=== PATIENT | female | born 1960 | race Caucasian/White ===

== ENCOUNTER → 2016-12-27 | Outpatient (CLI) | payer BC ==
[~2016-12-27] MED LIST: ANAS1TAB19 PO; ASPEC81 PO; CALC1CHW2 PO; CHOL100010 PO; CYCL0.05 OP; EFF375 PO; FLAX10007 PO; MULT-506 PO; NAPR1TAB9 PO; PANT1TAB48 PO; PRAV20TA PO; TRIA1SPR4 NAE; ZNTT/150 PO
[2016-12-27 13:54] VITALS: BP 116/83; PULSE 88; TEMP 37; O2SAT 98
--- NOTE | 2016-12-27 17:27 | Radiation Oncology Follow-Up ---
Radiation Oncology Follow-Up Date of Visit Dec 27, 2016. 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 Last Edited By: Shayy Ovalle on Jul 01, 2015 15:47 History of Present Illness This active 56-year-old lady is referred to us after undergoing double lumpectomy. The patient's history is somewhat fascinating in that she was undergoing her routine mammography when a lesion was noted on mammogram. She went on to have evaluation with ultrasound-guided biopsy which did reveal invasive carcinoma. This evaluation being back in December of this year. The patient underwent an MRI of her large fibrocystic breast at her referring physician's request. The MRI was remarkable that it showed a second area distinct from the first in her breast. Unfortunately, PAC this area could not be seen with mammography or ultrasound. She went on to have a needle under MRI localization. This lesion also was positive for DCIS The patient went on to have 2 lumpectomies on her left breast on 02/24/2015. The most worrisome lesion was from 12 o'clock in the left breast, and it revealed invasive ductal carcinoma, low-grade. The tumor was ER/OH positive. HER-2/juan c negative. This lesion maximal dimension was 1.6 cm. There were excellent margins obtained. The second lesion at 6 o'clock in the left breast demonstrated low-grade DCIS only. It was found to be 1 cm from the closest margin. A sentinel node procedure was done at the same time, and it was negative. In summary, the patient had 2 separate lesions, 1 of low-grade invasive cancer, ER/OH positive; the other of DCIS. She is staged T1cN0. She was seen by medical oncology Dr. Sebastian and an Oncotype DX was ordered. This was found to be 7 she did not require chemotherapy. She completed radiation therapy 05/24/2015 received 6120 cGy Interim History She's been doing well over this past year. She has occasional mild discomfort. There are no persistent discomforts. She has noted no masses and no change of the axilla. She's had no swelling of her arm. She is up-to-date on mammography. She is on Arimidex and denies side effects. She had a mammogram 02/25/2016. This showed stable postsurgical changes in the left breast from prior lumpectomies, with no mammographic evidence of malignancy in either breast. Recommend follow-up diagnostic mammogram of the left breast in 6 months. BI-RADS Category 3. She had a repeat check 6 month mammogram 2015. This showed expected post treatment changes in the left breast with increase in the copious very faint clusters of punctate microcalcifications along both the medial and lateral margins of the lumpectomy bed in the upper outer quadrant. These most likely represent benign dystrophic calcifications, but given the increased conspicuity a short interval follow-up mammogram including spot magnification views is recommended in 6 months. The patient is also due for bilateral breast MRI to ensure stability. She did have the breast MRIs 09/04/2016. This showed expected postsurgical and posttreatment changes within the left breast, without MRI evidence of malignancy bilaterally. Bilateral diagnostic mammogram is recommended in 6 months. And this will be for the left breast. Allergies Coded Allergies: No Known Allergies (Unverified , 10/20/11) Home Medications Scheduled Anastrozole (Arimidex), 1 TAB PO DAILY Aspirin Enteric Coated (Ecotrin Or Generic *), 81 MG PO DAILY Calcium Carbonate-Vitamin D (Caltrate 600+D 600-400 mg-Unit), 1 TAB PO DAILY Cholecalciferol (Vitamin D), 1,000 INTER.UNIT PO DAILY Cyclosporine Oph 0.05% (Restasis Oph 0.05%), 1 DROP OP BID Flaxseed (Linseed) (Flax Seed Oil), 1 CAP PO DAILY Multivitamin (Multivitamin), 1 TAB PO DAILY Naproxen (Aleve), 440 MG PO BID Pravastatin (Pravachol ), 40 MG PO QAM Ranitidine (Zantac), 1 TAB PO BID Venlafaxine Hcl (Effexor *), 37.5 MG PO QPM Scheduled PRN Triamcinolone Acetonide (Nasal (Nasacort Allergy 24Hr), 2 SPRAYS ALLEN DAILY PRN for Nasal Congestion Review of Systems Gastrointestinal: Symptoms: WNL Oral: Symptoms: No Problems Respiratory: Symptoms: WNL Urinary: Symptoms: Nocturia Comments: nocturia times 1 Skin: Symptoms: No Problems Breast: Right Upper Arm Measurement: 31.0 Right Mid Arm Measurement: 24.0 Right Wrist Measurement: 16.7 Left Upper Arm Measurement: 31.0 Left Mid Arm Measurement: 25.0 Left Wrist Measurement: 16.6 Arm Dominence: Left Patient Cosmetic Evaluation: Good Staff Cosmetic Evalaluation: Good Physical Exam Vital Signs Date Time Temp Pulse Resp B/P Pulse Ox O2 Delivery O2 Flow Rate FiO2 12/27/16 13:54 37.0 88 16 116/83 98 Pain: Side: Bilateral Patient Pain Scale: 0 - 10 Initial Pain Intensity: 0.0 Fatigue: None General Appearance: no apparent distress Eyes: normal inspection, EOMI ENT: normal ENT inspection, hearing grossly normal Neck: no adenopathy, thyroid normal Respiratory/Chest: lungs clear, no respiratory distress, no accessory muscle use Breast: Large pendulous breasts. The left breast showed well healed incisions. There are no masses or tenderness no axillary adenopathy she has no skin retractions or nipple changes using the [place] score cosmesis she has a in excellent outcome. There is no telangiectasia. The right breast showed no masses or tenderness and no axillary adenopathy. Cardiovascular: regular rate, rhythm, no gallop, no murmur Abdomen: non tender Extremities: no pedal edema Neurologic/Psychiatric: no motor/sensory deficits, alert, normal mood/affect Skin: warm/dry Lymphatic: no adenopathy Additional Studies Mammography and MRIs as reviewed above. Assessment & Plan Plan: She is scheduled for next mammogram in February. Continue regular follow-up with Dr. Hackett, Dr. Sebastian, and her primary care provider. She continues on Arimidex. We asked her to return to our office in 1 year. She may call if she has any questions or concerns in the interim. Total Time In Follow-Up I spent 20 minutes speaking to the patient performing examination. I spent 15 minutes reviewing information in completing this note. Copy To Nancy Hackett MD; Marc Kennedy M.D.; Fady Sebastian M.D. Problem Qualifiers (1) Malignant neoplasm of central portion of female breast: Laterality: left Qualified Codes: C50.112 - Malignant neoplasm of central portion of left female breast
== END | disposition home or self-care (01) ==
LOC: C.ONC 13:15
PROVIDERS: ATTEND Physician Assistant Medical
DX: Z08 Encounter for follow-up examination after completed treatment for malignant neoplasm (principal); Z92.3 Personal history of irradiation; Z85.3 Personal history of malignant neoplasm of breast

== ENCOUNTER → 2017-02-26 | Outpatient (CLI) | payer BC ==
[~2017-02-26] MED LIST changes: -PANT1TAB48 PO
--- NOTE | 2017-02-27 07:57 | MAMMOGRAPHY REPORT ---
BILATERAL DIGITAL DIAGNOSTIC MAMMOGRAM TOMOSYNTHESIS WITH CAD: 02/26/2017 CLINICAL HISTORY: 56-year-old female with a personal history of left breast cancer and right breast atypia status post treatment. TECHNIQUE: Bilateral CC and MLO 2-D digital and tomosynthesis images, spot magnification left CC an d ML views were obtained. Current study was also evaluated with a Computer Aided Detection (CAD) sy stem. COMPARISON: Comparison is made to exams dated: 09/04/2016 breast MRI, 08/29/2016 mammogram, 02/25/20 16 mammogram, 08/19/2015 breast MRI, 08/19/2015 mammogram, and 01/27/2015 mammogram - [facility]. BREAST COMPOSITION: There are scattered areas of fibroglandular density in both breasts. FINDINGS: There are linear scar markers overlying each breast. There is expected architectural dis tortion with central fat necrosis in the upper outer middle to anterior left breast, at the site of prior lumpectomy. A ribbon-shaped metallic biopsy marker remains in the left upper outer anterior b reast. There are stable circumscribed masses in the central left breast. Spot magnification views demonstrate a few scattered and grouped benign-appearing round and punctate microcalcifications, lat eral, and medial to the central area of fat necrosis. These microcalcifications appear similar dati ng back to the spot magnification views performed 08/19/2015 and are most likely benign. There are other scattered and grouped microcalcifications throughout the entire right breast that appears rut lar dating back to 2010 and also likely benign. No new suspicious spiculated or irregular mass, une xpected focal area of architectural distortion or new calcifications are seen bilaterally. IMPRESSION: ACR-BI-RADS CATEGORY 3: PROBABLY BENIGN 1. Expected postsurgical/post treatment changes in the left breast, and postsurgical changes in the right breast, without definite mammographic evidence of malignancy bilaterally. Another 12 month f ollow-up bilateral diagnostic mammogram with repeat left spot magnification views is recommended to ensure longer stability. Particularly given the heterogeneously dense breasts, multiple masses and microcalcifications bilaterally, personal history of right breast atypia and left breast cancer. 2. Would also recommend continuation of breast MRI for additional surveillance, given that the righ t breast atypia was only seen on MRI. These results and recommendations were discussed with the patient at the time of the exam. Approximately 10% of breast cancers are not detected with mammography. A negative mammographic repor t should not delay biopsy if a clinically suggestive mass is present. Haylee Zelaya M.D. ay/:02/26/2017 16:13:54 Credit Assistant: Consuelo Chapin, [facility] letter sent: Follow Up Recommended 3 BI-RADS Code: ACR-BI-RADS Category 3: Probably Benign
== END | disposition home or self-care (01) ==
LOC: C.MAMM 10:41
PROVIDERS: ATTEND Surgery
DX: Z85.3 Personal history of malignant neoplasm of breast (principal); Z09 Encounter for follow-up examination after completed treatment for conditions other than malignant neoplasm

== ENCOUNTER → 2017-10-04 | Outpatient (CLI) | payer BC ==
[~2017-10-04] MED LIST changes: +GADAVIST IV PRN
--- NOTE | 2017-10-05 12:52 | MAMMOGRAPHY REPORT ---
BREAST MRI OF BOTH BREASTS : 10/04/2017 CLINICAL HISTORY: History of left breast cancer and atypia status post treatment. COMPARISON: Comparison is made to exams dated: 02/26/2017 mammogram, 09/04/2016 breast MRI, 6 mammogram, 08/19/2015 breast MRI, 08/19/2015 mammogram, and 01/27/2015 mammogram - [facility]. Technique: The patient was placed prone in a dedicated breast imaging coil. Precontrast axial T1-angelic ghted, axial T2-weighted fat saturation, and axial T1-weighted fat saturation images were obtained. After the administration of 9 mL of Gadavist IV contrast, sequential T1-weighted fat saturation image s were obtained. Subtraction images were obtained of the dynamic contrast enhanced sequences, and 3- D reformations were performed. The [employer] software was used for kinetic analysis. Findings: There is mild background parenchymal enhancement involving bilateral breasts. There are expected pos tsurgical changes including fat necrosis at the site of prior lumpectomies in the left upper outer qu adrant and 6:00 breast. There are no suspicious enhancing masses or areas of abnormal non-mass enhan cement within either breast. There has been no significant interval change compared to the prior MRI exam. Circumscribed 6 mm benign-appearing enhancing mass in the right breast at approximately 9:00 is stable dating back to at least the December 2014 exam, and is considered benign given long-term stabi lity and likely represents a fibroadenoma. Other benign-appearing circumscribed masses are seen bila terally which do not demonstrate any significant postcontrast enhancement and are considered benign a nd likely also represent fibroadenomas. There is no evidence of axillary adenopathy. The chest wall structures are negative. Visualized por tions of the extramammary soft tissues are unremarkable. IMPRESSION: ACR BI-RADS CATEGORY 2: BENIGN Expected post treatment changes in the left breast, without MRI evidence of malignancy in either [facility] [facility]. Note that the patient is due for bilateral diagnostic mammograms February 2018. Also consider contin uation of yearly breast MRI for additional surveillance. Анна Vo M.D. /:10/04/2017 17:01:19 Preform Plate Maker: complex care nurse, [facility] letter sent: Normal 1/2 BI-RADS Code: ACR BI-RADS Category 2: Benign
== END | disposition home or self-care (01) ==
LOC: C.MRI 12:29
PROVIDERS: ATTEND Surgery
DX: R92.8 Other abnormal and inconclusive findings on diagnostic imaging of breast (principal)

== ENCOUNTER → 2018-01-01 | Outpatient (CLI) | payer BC ==
[~2018-01-01] MED LIST changes: -GADAVIST IV PRN; +MELO-83; +RANI150T85 PO; -ZNTT/150 PO
[2018-01-01 12:52] VITALS: BP 105/74; PULSE 84; TEMP 36.9; O2SAT 95
--- NOTE | 2018-01-01 14:03 | Radiation Oncology Follow-Up ---
Radiation Oncology Follow-Up Date of Visit Jan 01, 2018. Reason For Visit Annual follow-up Radiation Completion Date 05/24/15 Diagnosis (1) Malignant neoplasm of central portion of female breast Status: Resolved Onset Date: 12/10/2014 Stage: l (A) Permanent Comment: Abnormal left breast mammogram Status post core needle biopsy 12/10/2014 revealing ductal carcinoma grade 2 Estrosgen receptor positive, progesterone receptor positive, HER-2/juan c negative MRI revealing second lesion MRI biopsy atypical ductal hyperplasia DCIS Needle localization lumpectomies and sentinel lymph node biopsy 02/24/2015 DCIS and Invasive Ductal carcimoma Stage [id number] Oncotype DX score of 7 Status post completion of radiation therapy 05/24/2015 received 6120 cGy On going treatment with Arimidex. Last Edited By: Shayy Ovalle on Jul 01, 2015 15:47 History of Present Illness This active 57-year-old lady is referred to us after undergoing double lumpectomy. The patient's history is somewhat fascinating in that she was undergoing her routine mammography when a lesion was noted on mammogram. She went on to have evaluation with ultrasound-guided biopsy which did reveal invasive carcinoma. This evaluation being back in December of this year. The patient underwent an MRI of her large fibrocystic breast at her referring physician's request. The MRI was remarkable that it showed a second area distinct from the first in her breast. Unfortunately, PAC this area could not be seen with mammography or ultrasound. She went on to have a needle under MRI localization. This lesion also was positive for DCIS The patient went on to have 2 lumpectomies on her left breast on 02/24/2015. The most worrisome lesion was from 12 o'clock in the left breast, and it revealed invasive ductal carcinoma, low-grade. The tumor was ER/OH positive. HER-2/juan c negative. This lesion maximal dimension was 1.6 cm. There were excellent margins obtained. The second lesion at 6 o'clock in the left breast demonstrated low-grade DCIS only. It was found to be 1 cm from the closest margin. A sentinel node procedure was done at the same time, and it was negative. In summary, the patient had 2 separate lesions, 1 of low-grade invasive cancer, ER/OH positive; the other of DCIS. She is staged T1cN0. She was seen by medical oncology Dr. Sebastian and an Oncotype DX was ordered. This was found to be 7 she did not require chemotherapy. She completed radiation therapy 05/24/2015 received 6120 cGy Interim History She has been doing well over this past year. She denies any changes in the breast. She occasionally has some discomfort if she is very active. There are no particular areas of soreness. She has noted no masses. She has had no change of the axilla no swelling of her arm. She is up-to-date on mammography. She is on Arimidex and denies side effects. Mammography and MRIs are scheduled through Dr. Hackett's office. She stated these are alternating every 6 months. Allergies Coded Allergies: No Known Allergies (Unverified , 10/20/11) Home Medications Scheduled Anastrozole (Arimidex), 1 TAB PO DAILY Aspirin Enteric Coated (Ecotrin Or Generic *), 81 MG PO DAILY Calcium Carbonate-Vitamin D (Caltrate 600+D 600-400 mg-Unit), 1 TAB PO DAILY Cholecalciferol (Vitamin D), 1,000 INTER.UNIT PO DAILY Cyclosporine Oph 0.05% (Restasis Oph 0.05%), 1 DROP OP BID Flaxseed (Linseed) (Flax Seed Oil), 1 CAP PO DAILY Meloxicam (Meloxicam), DAILY Multivitamin (Multivitamin), 1 TAB PO DAILY Pravastatin (Pravachol ), 40 MG PO QAM Ranitidine (Zantac), 1 TAB PO BID Venlafaxine Hcl (Effexor *), 37.5 MG PO QPM Scheduled PRN Triamcinolone Acetonide (Nasal (Nasacort Allergy 24Hr), 2 SPRAYS ALLEN DAILY PRN for Nasal Congestion Review of Systems Gastrointestinal: Symptoms: WNL Oral: Symptoms: No Problems Respiratory: Symptoms: WNL Urinary: Symptoms: WNL Comments: nocturia times 1 Skin: Symptoms: No Problems Breast: Right Upper Arm Measurement: 29.5 Right Mid Arm Measurement: 25.3 Right Wrist Measurement: 17.0 Left Upper Arm Measurement: 29.4 Left Mid Arm Measurement: 24.7 Left Wrist Measurement: 16.8 Arm Dominence: Left Patient Cosmetic Evaluation: Good Staff Cosmetic Evalaluation: Good Physical Exam Vital Signs Date Time Temp Pulse Resp B/P (MAP) Pulse Ox O2 Delivery O2 Flow Rate FiO2 01/01/18 12:52 36.9 84 16 105/74 95 Fatigue: None General Appearance: no apparent distress Eyes: normal inspection, EOMI ENT: normal ENT inspection, hearing grossly normal Neck: no adenopathy, thyroid normal Respiratory/Chest: lungs clear, no respiratory distress, no accessory muscle use Breast: Breast examination reveals well-healed incisions of the left breast. There are no masses or tenderness and no axillary adenopathy. There is a fibrous tissues noted in the area of the incision. She has no skin retractions or nipple changes. Using the [place] score cosmesis she has a good outcome. The right breast showed well-healed incisions. There are no masses or tenderness and no axillary adenopathy. Cardiovascular: regular rate, rhythm, no gallop, no murmur Abdomen: non tender, soft, no organomegaly Extremities: no pedal edema Neurologic/Psychiatric: no motor/sensory deficits, alert, normal mood/affect Skin: warm/dry Pain Management Patient Reports Pain: No Side: Bilateral Pain Location: None Patient Preferred Pain Scale: 0 - 10 Initial Pain Intensity: 0.0 Pain Management Plan She denied pain therefore requires no pain management. Laboratory Laboratory Results: were reviewed, and pertinent findings noted in [facility] Pathology Pathology Results: were reviewed, and pertinent findings noted in [facility] Imaging Imaging Studies: were reviewed, and pertinent findings noted below Imaging Comments Patient: ELISA BURROWS [facility] Rec: [id number] Address1: [address] [place] [address] Address2: [facility] ID: [id number] Date: 1960 Sex: F Ref Phy: Nancy Hackett MD Att Phy: Nancy Hackett MD Stacie Phy: Mansoor Beckman III, M.D. Inter Phy: Haylee Zelaya MD [facility] Zip: [place] [address] SC: C.MAMM Report #: [id number] Hospice Office Coordinator: MILADY Diagnosis: LFT BREAST CA FOLLOW UP Service Date: 02/26/17 MNE: MAMM1 Ordering Dr: Nancy Hackett MD CC: Nancy Hackett MD CONF: DICTATED BY: Haylee Zelaya MD MAMMOGRAPHY REPORT BILATERAL DIGITAL DIAGNOSTIC MAMMOGRAM TOMOSYNTHESIS WITH CAD: 02/26/2017 CLINICAL HISTORY: 56-year-old female with a personal history of left breast cancer and right breast atypia status post treatment. TECHNIQUE: Bilateral CC and MLO 2-D digital and tomosynthesis images, spot magnification left CC and ML views were obtained. Current study was also evaluated with a Computer Aided Detection (CAD) system. COMPARISON: Comparison is made to exams dated: 09/04/2016 breast MRI, 2015 mammogram, 02/25/2016 mammogram, 08/19/2015 breast MRI, 08/19/2015 mammogram , and 01/27/2015 mammogram - [facility]. BREAST COMPOSITION: There are scattered areas of fibroglandular density in both breasts. FINDINGS: There are linear scar markers overlying each breast. There is expected architectural distortion with central fat necrosis in the upper outer middle to anterior left breast, at the site of prior lumpectomy. A ribbon- shaped metallic biopsy marker remains in the left upper outer anterior breast. There are stable circumscribed masses in the central left breast. Spot magnification views demonstrate a few scattered and grouped benign-appearing round and punctate microcalcifications, lateral, and medial to the central area of fat necrosis. These microcalcifications appear similar dating back to the spot magnification views performed 08/19/2015 and are most likely benign. There are other scattered and grouped microcalcifications throughout the entire right breast that appears similar dating back to 2010 and also likely benign. No new suspicious spiculated or irregular mass, unexpected focal area of architectural distortion or new calcifications are seen bilaterally. IMPRESSION: ACR-BI-RADS CATEGORY 3: PROBABLY BENIGN 1. Expected postsurgical/post treatment changes in the left breast, and postsurgical changes in the right breast, without definite mammographic evidence of malignancy bilaterally. Another 12 month follow-up bilateral diagnostic mammogram with repeat left spot magnification views is recommended to ensure longer stability. Particularly given the heterogeneously dense breasts, multiple masses and microcalcifications bilaterally, personal history of right breast atypia and left breast cancer. 2. Would also recommend continuation of breast MRI for additional surveillance , given that the right breast atypia was only seen on MRI. These results and recommendations were discussed with the patient at the time of the exam. Approximately 10% of breast cancers are not detected with mammography. A negative mammographic report should not delay biopsy if a clinically suggestive mass is present. Haylee Zelaya M.D. ay/:02/26/2017 16:13:54 Application Counselor: Consuelo Chapin, [facility] letter sent: Follow Up Recommended 3 BI-RADS Code: ACR-BI-RADS Category 3: Probably Benign Dictated by: Haylee Zelaya MD Signed by: Haylee Zelaya MD Patient: ELISA BURROWS [facility] Rec: [id number] Address1: [address] Address2: [employer] ID: [id number] Date: 1960 Sex: F Ref Phy: Nancy Hackett MD Att Phy: Nancy Hackett MD Stacie Phy: Mansoor Beckman III, M.D. Inter Phy: Анна Vo MD [facility] Zip: [place] [address] SC: C.MRI Report #: [id number] Hospice Office Coordinator: SERJIO Diagnosis: ABNORMAL MAMM Service Date: 10/04/17 MNE: MAMM1 Ordering Dr: Nancy Hackett MD CC: Nancy Hackett MD CONF: DICTATED BY: Анна Vo MD MAMMOGRAPHY REPORT BREAST MRI OF BOTH BREASTS : 10/04/2017 CLINICAL HISTORY: History of left breast cancer and atypia status post treatment. COMPARISON: Comparison is made to exams dated: 02/26/2017 mammogram, 09/04/2016 breast MRI, 08/29/2016 mammogram, 08/19/2015 breast MRI, 08/19/2015 mammogram, and 01/27/2015 mammogram - [facility]. Technique: The patient was placed prone in a dedicated breast imaging coil. Precontrast axial T1-weighted, axial T2-weighted fat saturation, and axial T1- weighted fat saturation images were obtained. After the administration of 9 mL of Gadavist IV contrast, sequential T1-weighted fat saturation images were obtained. Subtraction images were obtained of the dynamic contrast enhanced sequences, and 3-D reformations were performed. The [employer] software was used for kinetic analysis. Findings: There is mild background parenchymal enhancement involving bilateral breasts. There are expected postsurgical changes including fat necrosis at the site of prior lumpectomies in the left upper outer quadrant and 6:00 breast. There are no suspicious enhancing masses or areas of abnormal non-mass enhancement within either breast. There has been no significant interval change compared to the prior MRI exam. Circumscribed 6 mm benign-appearing enhancing mass in the right breast at approximately 9:00 is stable dating back to at least the December 2014 exam, and is considered benign given long-term stability and likely represents a fibroadenoma. Other benign-appearing circumscribed masses are seen bilaterally which do not demonstrate any significant postcontrast enhancement and are considered benign and likely also represent fibroadenomas. There is no evidence of axillary adenopathy. The chest wall structures are negative. Visualized portions of the extramammary soft tissues are unremarkable. IMPRESSION: ACR BI-RADS CATEGORY 2: BENIGN Expected post treatment changes in the left breast, without MRI evidence of malignancy in either breast. Note that the patient is due for bilateral diagnostic mammograms February 2018. Also consider continuation of yearly breast MRI for additional surveillance. Анна Vo M.D. ah/:10/04/2017 17:01:19 Application Counselor: purchasing intern, [facility] letter sent: Normal 1/2 BI-RADS Code: ACR BI-RADS Category 2: Benign Dictated by: Анна Vo MD Signed by: Анна Vo MD Assessment & Plan Plan: Continue with scheduled mammography and MRIs. Continue regular follow-up with medical oncology. She continues on Rheumatrex. She was a patient of Dr. Sebastian and now will be following with Dr. Blank. We asked her to return to our office in 1 year. She may call if she has any questions or concerns in the interim. Total Time In Follow-Up I spent 20 minutes speaking to the patient in performing examination. I spent 15 minutes reviewing information and completing this note. Copy To Nancy Hackett MD; Bailey Blank MD; Mansoor Beckman III, M.D. Problem Qualifiers (1) Malignant neoplasm of central portion of female breast: Estrogen receptor status: positive Laterality: left Qualified Codes: C50.112 - Malignant neoplasm of central portion of left female breast; Z17.0 - Estrogen receptor positive status [ER+]
== END | disposition home or self-care (01) ==
LOC: C.ONC 12:48
PROVIDERS: ATTEND Physician Assistant Medical
DX: Z08 Encounter for follow-up examination after completed treatment for malignant neoplasm (principal); Z92.3 Personal history of irradiation; Z85.3 Personal history of malignant neoplasm of breast